=== PATIENT | female | born 1995 | race African-American/Black ===

== ENCOUNTER 2022-07-02 18:33 | Emergency (ER) | payer OTHER, SELFPAY ==
--- NOTE | 2022-07-02 18:38 | ED.GENADULT ---
HPI - General Adult General Chief complaint: Nausea/Vomiting/Diarrhea Stated complaint: alcohol poisoning Time Seen by Provider: 07/02/22 18:56 Source: patient Mode of arrival: ambulatory Limitations: no limitations History of Present Illness HPI narrative: 27-year-old female presents with concern for possible alcohol poisoning. Reports she drank too much alcohol last night, she passed out. She does not know how much alcohol she drank her when she passed out. She reports this morning she has had general malaise, chills, aches, nausea and vomiting, diarrhea. She denies runny nose or stuffy nose, sore throat cough. She denies any episodes of syncope, near syncope today, has not passed out today. She is concerned because she has been unable to keep fluids down. MD complaint: General malaise Related Data Home Medications Medication Instructions Recorded Confirmed buspirone 10 mg tablet 10 mg PO DAILY 07/02/22 07/02/22 citalopram 20 mg tablet 20 mg PO DAILY 07/02/22 07/02/22 norethindrone acetate 1 mg-ethinyl 1 tablet PO DAILY 07/02/22 07/02/22 estradiol 20 mcg tablet (June) Allergies Allergy/AdvReac Type Severity Reaction Status Date / Time No Known Allergies Allergy Verified 07/02/22 18:57 Review of Systems Review of Systems: CONSTITUTIONAL: Reports malaise, chills. Denied sweats, or fever. EYES: Denies visual changes, redness, or discharge. ENT: Denies rhinorrhea, congestion, sinus pain, otalgia or sore throat. CARDIOVASCULAR: Denies chest pain, palpitations, or edema. RESPIRATORY: Denies cough or dyspnea. GASTROINTESTINAL: Denies abdominal pain, bloody, or mucous stools. Reports nausea, vomiting, diarrhea GENITOURINARY: Denies dysuria or hematuria. SKIN: Denies rash or itching. MUSCULOSKELETAL: Denies back pain, joint pain. Reports myalgia. NEUROLOGIC: Denies numbness, weakness. Reports headache. All systems reviewed & are unremarkable except as noted in HPI and below PMFSH Comments At time of signature, agree with nursing past medical, surgical, social and family history. There is no relevant family history pertinent to the presenting complaint Exam Narrative: GENERAL: Nontoxic-appearing and in no acute distress. HEAD: Normocephalic, atraumatic. EYES: PERRLA, sclera clear, and EOMI. No nystagmus. ENT: Nares clear. Mucous membranes moist. TM pearly sharma with sharp light reflex bilaterally; no tragal tenderness. Oropharynx without erythema or lesions. Tonsils not enlarged and without exudate. NECK: Supple. CHEST: No respiratory distress. Clear to auscultation. No bony deformities, no asymmetry. Speaks in full sentences. HEART: Regular rate and rhythm. No murmur heard. Normal peripheral pulses. ABDOMEN: Soft, nontender, nondistended, normal active bowel sounds, no palpable masses. EXTREMITIES: Normal range of motion. No edema. Normal strength and sensation. SKIN: Warm, dry, no visible rash. NEURO: Alert and oriented x3. No focal deficits. PSYCH: Normal mood, flat affect Course Course Emergency Course: Patient is aware of diagnosis, understands and agrees to treatment plan. Anticipatory guidance given. Patient agrees to follow-up as directed and is aware of reasons to seek care at the emergency department. Portions of this record may have been created with voice recognition software Level of Care: Express Care Visit Vital Signs Vital signs: Reviewed. Medical Decision Making MDM Narrative Medical decision making narrative: Differential diagnosis considered: Alcohol intoxication, alcohol poisoning, [place] virus, strep pharyngitis, allergic rhinitis, upper respiratory tract infection, sinusitis, rhinosinusitis, nasopharyngitis. viral pharyngitis, otitis media, otitis externa, pneumonia, bronchitis, viral cough syndrome, viral syndrome, and influenza. Exam findings show no acute concerns or changes; patient is non-toxic appearing and is in no distress. Patient is appropriate for outpatient treatment a
[2022-07-02 18:50] VITALS: BP 119/81; PULSE 76; RESP 20; TEMP 37.1; O2SAT 100
[2022-07-02] MEDS: ONDANSETRON HCL ODT 4 MG TABLET PO (19:05)
== END 2022-07-02 19:20 | disposition home or self-care (01) ==
PROVIDERS: Emergency Provider Nurse Practitioner
DX: F10.129 Alcohol abuse with intoxication, unspecified (principal); N80.9 Endometriosis, unspecified
CPT/HCPCS: 87804; 99213; A9270; G0463